=== PATIENT | male | born 1985 | race Hispanic/Latino ===

== ENCOUNTER 2019-07-22 22:54 | Emergency (ER) | payer SELFPAY ==
[2019-07-23] MEDS ORDERED: ERYTHROMYCIN BASE 0.5% OPHTH OINT 1 GM TUBE ONE (00:10)
[2019-07-23] MEDS ORDERED: CLINDAMYCIN HCL 150 MG CAP ONE (00:10)
== END 2019-07-23 00:41 | disposition home or self-care (01) ==
LOC: EDH 22:54
DX: H00.035 Abscess of left lower eyelid (principal); H00.015 Hordeolum externum left lower eyelid; H10.9 Unspecified conjunctivitis

== ENCOUNTER 2020-01-12 08:14 | Emergency (ER) | payer SELFPAY ==
[2020-01-12] MEDS ORDERED: LIDOCAINE HCL-MPF 1% 2ML VIAL ONE (08:59)
[2020-01-12] MEDS ORDERED: CEFTRIAXONE SODIUM 1 GM ONE (08:59)
[2020-01-12] MEDS ORDERED: KETOROLAC TROMETHAMINE 60 MG/2 ML VIAL ONE (08:59)
== END 2020-01-12 10:02 | disposition home or self-care (01) ==
LOC: EDH 08:14
DX: L03.213 Periorbital cellulitis (principal)
CPT/HCPCS: 96372 ×2; 99284; J0696; J1885; J3490

== ENCOUNTER 2020-03-06 20:19 | Emergency (ER) | payer SELFPAY ==
[2020-03-06] MEDS ORDERED: FLUORESCEIN SODIUM 1 STRIP STRIP ONE (20:27)
[2020-03-06] MEDS ORDERED: TETRACAINE HCL 0.5% 4 ML OPHTH SOLN ONE (20:27)
[2020-03-06] MEDS ORDERED: ERYTHROMYCIN BASE 0.5% OPHTH OINT 1 GM TUBE ONE (21:13)
== END 2020-03-06 21:21 | disposition home or self-care (01) ==
LOC: EDH 20:19
DX: H10.31 Unspecified acute conjunctivitis, right eye (principal)

== ENCOUNTER 2020-11-30 08:42 | Emergency (ER) | payer SELFPAY ==
[~2020-11-30] VITALS: Ht 177.8 cm; Wt 95.3 kg
[2020-11-30] MEDS ORDERED: TETRACAINE HCL 0.5% 4 ML OPHTH SOLN OP SCH (12:00)
[2020-11-30] MEDS ORDERED: CEPHALEXIN 500 MG CAPSULE PO SCH (12:00)
[2020-11-30] MEDS ORDERED: TETANUS/DIPHTHERIA TOXOID [ADULT] 0.5 ML VIAL IM ONE (12:00)
[2020-11-30] MEDS ORDERED: ACETAMINOPHEN-CODEINE 300/30MG TAB PO SCH (12:00)
[2020-11-30] MEDS ORDERED: ACET1TAB25 PO (13:45)
[2020-11-30] MEDS ORDERED: CEPH500B PO (13:45)
[2020-11-30] MEDS ORDERED: GENT5DRO32 OP (13:45)
== END 2020-11-30 14:42 | disposition home or self-care (01) ==
LOC: EDH 08:42
DX: H10.33 Unspecified acute conjunctivitis, bilateral (principal); L03.213 Periorbital cellulitis